=== PATIENT | female | born 1990 | race Caucasian/White ===

== ENCOUNTER 2017-06-19 20:49 | Outpatient (CLI) | payer OTHER | END 2017-06-19 22:50 | disposition home or self-care (01) | LOC: OBS/DEL 20:49 | DX: O26.892 Other specified pregnancy related conditions, second trimester (principal); R10.2 Pelvic and perineal pain; Z34.82 Encounter for supervision of other normal pregnancy, second trimester ==

== ENCOUNTER 2017-09-25 07:22 | Inpatient (IN) | payer OTHER ==
[~2017-09-25] VITALS: Ht 170.2 cm; Wt 75.3 kg
[2017-09-25] MEDS ORDERED: PRENATAL TABLE1 EACH PO (08:41)
== END 2017-09-27 09:47 | disposition home or self-care (01) | DRG 775 ==
LOC: LDR 07:22 → OB/GYN 07:22
PROC: 10E0XZZ Delivery of Products of Conception, External Approach (ICD-10-PCS; principal; 2017-09-25)
PROC: 10907ZC Drainage of Amniotic Fluid, Therapeutic from Products of Conception, Via Natural or Artificial Opening (ICD-10-PCS; 2017-09-25)
PROC: 4A1HXCZ Monitoring of Products of Conception, Cardiac Rate, External Approach (ICD-10-PCS; 2017-09-25)
PROC: 3E033VJ Introduction of Other Hormone into Peripheral Vein, Percutaneous Approach (ICD-10-PCS; 2017-09-25)
DX: O80 Encounter for full-term uncomplicated delivery (principal); Z3A.38 38 weeks gestation of pregnancy; Z37.0 Single live birth